=== PATIENT | male | born 1985 | race African-American/Black ===

== ENCOUNTER 2021-12-15 15:23 | Emergency (ER) | payer OTHER, BC ==
[~2021-12-15] VITALS: Ht 180.3 cm; Wt 93.0 kg
[2021-12-15 15:27] VITALS: BP_SYST 137
--- NOTE | 2021-12-15 16:10 | NUR ---
HENRY VASQUEZ at bedside.
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
--- NOTE | 2021-12-15 16:38 | NUR ---
Radiology at bedside.
[2021-12-15] MEDS ORDERED: SOM350 PO (17:18)
[2021-12-15] MEDS ORDERED: IBUP-1969 PO (17:18)
[2021-12-15 17:47] VITALS: BP_SYST 122
--- NOTE | 2021-12-15 17:50 | NUR ---
Patient given written and verbal discharge instructions and verbalizes understanding. ER MD discussed with patient the results and treatment provided. Patient in stable condition. ID arm band removed. Rx of Ibuprofen and soma given. Patient educated on pain management and to follow up with PMD. Pain Scale 0/10. Opportunity for questions provided and answered. Medication side effect fact sheet provided. Patient A/Ox4, VSS, resp even and unlabored. Nad noted at this time.
== END 2021-12-15 17:50 | disposition home or self-care (01) ==
LOC: SED 15:23
DX: S13.4XXA Sprain of ligaments of cervical spine, initial encounter (principal); V49.49XA Driver injured in collision with other motor vehicles in traffic accident, initial encounter; Y93.89 Activity, other specified; Y92.89 Other specified places as the place of occurrence of the external cause; Y99.8 Other external cause status
CPT/HCPCS: 71045; 72040-TC; 99284